=== PATIENT | male | born 1970 | race Caucasian/White ===

== ENCOUNTER 2021-04-12 14:39 | Outpatient (CLI) | payer BC, SELFPAY ==
--- NOTE | 2021-04-12 14:49 | XR_ITS ---
WS: [id number] Left hand, 3 views, 04/12/2021 Clinical Data: LEFT THUMB PAIN Comparison: None. Findings: No fractures or dislocations are seen. The soft tissues are unremarkable. The joint spaces are normal XR/XR hand LT min 3V* [id number] Impression: Negative left hand.
== END 2021-04-12 14:40 | disposition home or self-care (01) ==
PROVIDERS: PCP Clinical Nurse Specialist Adult Health; Visit Provider Clinical Nurse Specialist Adult Health
DX: M79.645 Pain in left finger(s) (principal)
CPT/HCPCS: 73130

== ENCOUNTER 2021-05-13 09:20 | Emergency (ER) | payer BC, SELFPAY ==
--- NOTE | 2021-05-13 10:36 | XRR_ITS ---
PROCEDURE INFORMATION: Exam: XR Right Hand Exam date and time: 05/13/2021 10:36 AM Age: 51 years old Clinical indication: Blunt trauma involving the right ring finger. Smashing injury today. Open wound approx 2 in length along the posterior 4th digit. Trauma to middle finger. TECHNIQUE: Imaging protocol: XR Right hand. Views: 3 or more views. COMPARISON: No relevant prior studies available. FINDINGS: Bones/joints: The scapholunate and lunotriquetral intervals are maintained. No chondrocalcinosis is seen. Mild degenerative changes at the radiocarpal, 1st carpometacarpal and 5th carpometacarpal joints. There is a comminuted, mildly displaced, open fracture involving the radial and anterior middle phalanx of the ring finger. It is difficult to exclude an underlying lucent lesion. Soft tissues: There is a laceration involving the anterior ring finger with foci of soft tissue gas. Soft tissue swelling involving the ring finger. XR/XR hand RT min 3V* [id number] IMPRESSION: 1. There is a comminuted, mildly displaced, open fracture involving the radial and anterior middle phalanx of the ring finger. It is difficult to exclude an underlying lucent lesion. 2. Laceration involving the anterior ring finger with foci of soft tissue gas. 3. Soft tissue swelling involving the ring finger. Radiation Dose CTDIVOL = (mGy): DLP = (mGy-cm)
[2021-05-13 10:37] VITALS: BP 144/80; PULSE 69; RESP 18; TEMP 36.6; O2SAT 98; BMI 28.8
--- NOTE | 2021-05-13 10:37 | W.ED.EXTPRO ---
HPI - Extremity Problem General: Chief complaint: Extremity Injury, Upper Stated complaint: Injury to Right Hand Time Seen by Provider: 05/13/21 09:56 Source: patient Mode of arrival: ambulatory History of Present Illness: HPI Narrative: Patient got right hand ring finger crushed/caught in between a post walker and a piece of metal this morning. He says post walker weight about 250 pounds. Patient has laceration to right middle finger. No active bleeding. MD Complaint: extremity pain Onset (ago): minute(s) Pain Consistency: constant Location: right and upper extremity Severity scale (1-10): 5 Quality: aching Radiation: none Relieving factors: immobilization Exacerbating factors: range of motion Review of Systems Narrative: Laceration/crush injury right ring finger Skin/Breast: Reports: other (Laceration) Psych: Denies: anxiety or depression Physical Exam Const: COMMON NORMALS: no acute distress GENERAL APPEARANCE: cooperative Psych: COMMON NORMALS: mental status grossly normal Skin: OTHER: Right ring finger laceration extends from the dorsal aspect of the area between the DIP and MIP down past the MIP toward the MCP no active bleeding. Patient has good flexion-extension of the finger. Tendon is exposed from below the MIP up to the DIP area wound was irrigated copiously. Mild bleeding after irrigation. Patient has good sensation distally. Procedures Laceration Laceration 1: Site: hand Side (If applicable): right Size (cm): 8 Description: stellate, irregular and clean Depth: involves muscle layer Local Anesthetic: lidocaine 1% Amount of anesthesia used (mL): 4 Pre-repair: wound explored, irrigated extensively and deep structures intact Skin layer closed with: other (Chromic) Size (cm): 4-0 Number of sutures: 8 Technique: simple, interrupted Course Vital Signs: Vital signs: Vital Signs Temperature 97.8 F 05/13/21 10:37 Pulse Rate 69 05/13/21 10:37 Respiratory Rate 18 05/13/21 10:37 Blood Pressure 144/80 05/13/21 10:37 Pulse Oximetry 98 05/13/21 10:37 MDM - Extremity (Nontraumatic) MDM Narrative: Medical decision making narrative: Patient with injury to right index finger. X-rays reveal commuted fracture. Hard to determine whether is a foreign body based on x-ray. Patient has laceration to the dorsal aspect of the finger. It is very irregular slight stellate I spoke with Dr. 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 Shared with him x-ray report, explained clinical presentation the patient's finger. Dr. Hurt as a way irrigate it loosely soaked with chromic and have patient splinted and have him follow-up with his office with the [facility] this coming week. Patient was also given Tdap, pain medication and placed on empiric antibiotics Discharge Plan Discharge Patient Disposition: Home Clinical Impression: Open fracture of middle or proximal phalanx of finger of right hand Condition: Stable Prescriptions: New hydrocodone-acetaminophen 5-325 mg tablet 1 tab PO TID PRN (Reason: pain) Qty: 14 RF: 0 cephalexin 500 mg capsule 500 mg PO Q8H 7 Days Qty: 21 RF: 0 Celebrex 100 mg capsule 100 mg PO BID Qty: 30 RF: 0 Discharge Orders: Discharge ED (Routine); Ordered 05/13/21 Ordered By: Luis Christiansen Referrals: Ortiz Garcia [Primary Care Provider] - Discharge Diet: Usual diet Discharge Activity: Increase activity as tolerated Patient Instructions: Finger Fracture (ED), Opioid Safety Activity Restrictions/Additional Instructions: Take medication as directed. Keep splint on. Follow-up with Dr. Mayorga in [facility]. his phone #[phone]. Observe for signs of infection such as swelling, foul drainage, severe redness. Keep finger mobile with splint. Off work for at least week. 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
[2021-05-13] MEDS: tetanus-dipt-pertussis 0.5 mL SDV IM (11:17)
[2021-05-13] MEDS: HYDROcodone-acetaminophen 7.5-325 mg Tablet 1 TAB PO (11:17)
[2021-05-13] MEDS: lidocaine 1% INJ 20 mL INTRADERMA (11:33)
[2021-05-13] MEDS: cephALEXin 500 mg Capsule PO (11:34)
--- NOTE | 2021-05-13 12:38 | PC.NURSE ---
THIS NURSE RECEIVED REPORT FROM NURSE ON THIS PATIENT AT 1205. THIS NURSE TAKES OVER CARE.
--- NOTE | 2021-05-15 08:31 | DCPLANNER ---
manager of care had message to schedule a follow up appointment for patient with Dr. Krishna at [facility] in [place]. manager of care faxed patients information, clinic will call patient with appointment information.
== END 2021-05-13 12:30 | disposition home or self-care (01) ==
PROVIDERS: Emergency Provider Nurse Practitioner Family; PCP Clinical Nurse Specialist Adult Health
DX: S62.624B Displaced fracture of middle phalanx of right ring finger, initial encounter for open fracture (principal); W23.0XXA Caught, crushed, jammed, or pinched between moving objects, initial encounter; Z23 Encounter for immunization
CPT/HCPCS: 12004; 73130; 90471; 90715; 99283

== ENCOUNTER 2021-07-03 15:37 | Outpatient (CLI) | payer BC, SELFPAY ==
--- NOTE | 2021-07-03 15:44 | XR_ITS ---
WS: [id number] CHEST 2 VIEWS HISTORY: RIB PAIN, RIGHT SIDED COMPARISON: None available. Lungs: No pneumothorax. Minimal blunting of the LEFT costophrenic angle. No mass. No pneumonia. Cardiac size: Normal. Mediastinum/Aorta: Normal mediastinum. Bones: Seen on the lateral projection is discontinuity of several of the ribs posteriorly. Difficult to visualize these on the PA projection. There are at least 3 contiguous rib fractures posteriorly. W ith the trauma being in on the RIGHT these are probably posterior RIGHT rib fractures. The RIGHT rib cage XR/XR chest 2V* [id number] IMPRESSION: 1. No pneumothorax. 2. Minimal blunting of the LEFT costophrenic angle from atelectasis. 3. There are probably 3 contiguous rib fractures in the posterior RIGHT thorax . These fractures are only identified on the lateral projection only.
== END 2021-07-03 15:38 | disposition home or self-care (01) ==
PROVIDERS: PCP Clinical Nurse Specialist Adult Health; Visit Provider Clinical Nurse Specialist Adult Health
DX: R07.81 Pleurodynia (principal)
CPT/HCPCS: 71046

== ENCOUNTER → 2022-12-04 12:41 | Outpatient (BNVA) | payer BC, SELFPAY | PROVIDERS: PCP Clinical Nurse Specialist Adult Health; Visit Provider Clinical Nurse Specialist Adult Health | DX: I10 Essential (primary) hypertension (principal); R39.89 Other symptoms and signs involving the genitourinary system; R39.11 Hesitancy of micturition | CPT/HCPCS: 80053; 80061; 81000; 84443; 85025 ==

== ENCOUNTER → 2023-03-08 10:30 | Outpatient (BNVA) | payer BC, SELFPAY | PROVIDERS: PCP Clinical Nurse Specialist Adult Health; Visit Provider Clinical Nurse Specialist Adult Health | DX: R79.89 Other specified abnormal findings of blood chemistry (principal) | CPT/HCPCS: 80076 ==

== ENCOUNTER → 2023-06-07 07:40 | Outpatient (BNVA) | payer BC, SELFPAY | PROVIDERS: PCP Clinical Nurse Specialist Adult Health; Visit Provider Clinical Nurse Specialist Adult Health | DX: R79.89 Other specified abnormal findings of blood chemistry (principal); E78.2 Mixed hyperlipidemia | CPT/HCPCS: 80053; 80061 ==

== ENCOUNTER → 2023-07-10 11:27 | Outpatient (BNVA) | payer BC, SELFPAY | PROVIDERS: PCP Clinical Nurse Specialist Adult Health; Visit Provider Clinical Nurse Specialist Adult Health | DX: J06.9 Acute upper respiratory infection, unspecified (principal); J10.1 Influenza due to other identified influenza virus with other respiratory manifestations | CPT/HCPCS: 87400 ==